=== PATIENT | male | born 1995 | race Caucasian/White ===

== ENCOUNTER 2019-05-11 23:23 | Emergency (ER) | payer MEDICAID, SELFPAY ==
[2019-05-11 23:27] VITALS: BP 133/70; PULSE 97; RESP 22; TEMP 36.8; O2SAT 100
[2019-05-12 01:06] VITALS: BP 140/86; PULSE 77; RESP 18; TEMP 37; O2SAT 99
--- NOTE | 2019-05-12 01:06 | ED.WOUNDLAC ---
HPI - Wound/Laceration General Chief Complaint: Wound/Laceration Stated Complaint: dog bite 4 days ago Time Seen by Provider: 05/12/19 01:03 Source: patient Mode of arrival: ambulatory Limitations: no limitations History of Present Illness HPI narrative: A 23 y/o male presents to the ED with c/o dog bite. Pt states that 5 days ago he was bitten by a Rottweiler on his left thigh. He notes that today the dog bite started to drain pus. Pt adds that walking causes pain to the left thigh. He is currently up to date on his Tetanus. Pt has no other complaints at this time. Onset (ago): day(s) (5) Extremity Location: Left: thigh Patient tetanus UTD: Yes Context: other (Dog bite) Associated symptoms: pain (With movement) Related Data Allergies Allergy/AdvReac Type Severity Reaction Status Date / Time No Known Allergies Allergy Verified 03/21/19 23:36 Review of Systems Review of Systems: Narrative: CONSTITUTIONAL: Denies fever, chills, or sweats. SKIN: Denies rash or itching. MUSCULOSKELETAL: Denies back pain, joint pain, or myalgia. Reports left thigh dog bite with pain. All systems reviewed & are unremarkable except as noted in HPI and below PMFSH Past Medical History Medical History Asthma Surgical History Surgical History (Updated 05/12/19 @ 01:31 by Dionne Gonzáles) No pertinent past surgical history Social History Social History (Updated 05/12/19 @ 01:31 by Dionne Gonzáles) Smoking status: Never smoker Substance use: current Substance use type: marijuana Gender identity (if verbalized by the patient): Male Exam Narrative: Exam Narrative: GENERAL: Well-appearing, well-nourished, and in no acute distress. HEAD: Normocephalic, atraumatic. EYES: PERRLA and EOMI. ENT: Nares clear, no rhinorrhea or epistaxis. Mucous membranes moist. NECK: Supple. CHEST: Clear to auscultation. No respiratory distress. HEART: Regular rate and rhythm. No murmur heard. Normal peripheral pulses. ABDOMEN: Soft, nontender, nondistended, normal active bowel sounds. EXTREMITIES: Normal range of motion. No edema. SKIN: Warm, dry, no rash. Hematoma to left lateral thigh with mild erythema. No warmth or fluctuance. NEURO: No focal deficits. Alert and oriented X3. Course Vital Signs Vital signs: Vital Signs Temperature 36.8 C 05/11/19 23:27 Pulse Rate 97 05/11/19 23:27 Respiratory Rate 22 H 05/11/19 23:27 Blood Pressure 133/70 05/11/19 23:27 Pulse Oximetry 100 05/11/19 23:27 Temperature 37.0 C 05/12/19 01:06 Pulse Rate 77 05/12/19 01:06 Respiratory Rate 18 05/12/19 01:06 Blood Pressure 140/86 05/12/19 01:06 Pulse Oximetry 99 05/12/19 01:06 Procedures Abscess I/D lower extremity: Date of Incision: 05/12/19 Time of Incision: 01:30 Side (if applicable): left Local Anesthetic: lidocaine 1% Amount of anesthesia used (mL): 5 Technique: incised with #11 blade Irrigation: No Packing used?: none I&D Results: Blood MDM - Wound/Laceration MDM Narrative Medical decision making narrative: Patient presents for evaluation of left leg wound from a dog bite that is 4 days old. This was incised, there is no purulent drainage. Only blood present. Appears more of a very local cellulitis with induration, there is really not much erythema or warmth. No evidence of foreign body. We will treat patient with oral Augmentin, patient's tetanus is up-to-date. He is neurovascularly intact with soft compartments. He was discharged home advised to follow-up if the wound was worsening, unable to tolerate antibiotics.Pt left prior to receiving paperwork in the ED. Discharge Plan Discharge Clinical Impression: Dog bite of extremity Cellulitis Qualifiers: Site of cellulitis: extremity Site of cellulitis of extremity: lower extremity Laterality: left Qualified Code(s): L03.116 - Cellulitis of left lower limb P
== END 2019-05-12 02:24 | disposition home or self-care (01) ==
PROVIDERS: Emergency Provider Emergency Medicine
DX: S71.152A Open bite, left thigh, initial encounter (principal); L03.116 Cellulitis of left lower limb; J45.909 Unspecified asthma, uncomplicated; W54.0XXA Bitten by dog, initial encounter
CPT/HCPCS: 10060; 99283

== ENCOUNTER 2020-02-14 12:42 | Emergency (ER) | payer OTHER, SELFPAY ==
--- NOTE | ~2020-02-14 | XR_ITS ---
EXAMINATION: XR abdomen/kub 1V DATE: 02/14/2020 13:52 INDICATION: Abdominal pain. Constipation. TECHNIQUE: A supine view of the abdomen on 2 radiographs was obtained. COMPARISON: None. FINDINGS: Small amount of gas scattered throughout the colon with minimal if any stool. No dilated gas-filled b owel to suggest obstruction. Couple phleboliths in the right hemipelvis. Additional sclerotic lesion projecting over the right sacral ala/posterior iliac spine most likely a bone island. Visualized lung bases are clear. Heart size is normal. Asymmetric joint space narrowing and subarticular sclerosis a t the right sacral iliac joint consistent with differential including secondary osteoarthritis relate d to prior infection or trauma or inflammatory psoriatic or reactive arthritis. Mild lumbar levocurva ture. IMPRESSION: 1. Normal bowel gas pattern. Reviewed, dictated and finalized at location A. R APPRENTICE
[2020-02-14 13:13] VITALS: BP 143/99; PULSE 93; RESP 18; TEMP 37; O2SAT 100
--- NOTE | 2020-02-14 14:04 | ED.GENADULT ---
HPI - General Adult General Chief complaint: Nausea/Vomiting/Diarrhea Stated complaint: constipation Time Seen by Provider: 02/14/20 12:50 Source: patient Mode of arrival: ambulatory Limitations: no limitations History of Present Illness HPI narrative: Patient is a 24-year-old male who presents to emergency department for evaluation of diarrhea that initially was liquid in nature lasted a few days with mild cramping of the abdomen patient thought he may have been constipated prior to the onset and began to take laxatives which she quit taking 2 days ago and is now noting mild discomfort of the abdomen with more normalized stools denies fever chills nausea vomiting URI symptoms Related Data Allergies Allergy/AdvReac Type Severity Reaction Status Date / Time No Known Allergies Allergy Verified 07/12/19 12:50 Review of Systems Review of Systems: All systems reviewed & are unremarkable except as noted in HPI and below PMFSH Past Medical History Medical History Asthma Healthy adult male Surgical History Surgical History No history of previous surgery No pertinent past surgical history Social History Social History Smoking status: Never smoker Substance use: current Substance use type: marijuana Gender identity (if verbalized by the patient): Male Sexual Orientation (if Verbalized by the Patient): Straight or Heterosexual Exam Narrative: Exam Narrative: GENERAL: Well-appearing, well-nourished, and in no acute distress. HEAD: Normocephalic, atraumatic. EYES: PERRLA and EOMI. ENT: Nares clear, no rhinorrhea or epistaxis. Mucous membranes moist. CHEST: Clear to auscultation. No respiratory distress. No wheezes rales or rhonchi HEART: Regular rate and rhythm. No murmur heard. Normal peripheral pulses. ABDOMEN: Soft, nontender, nondistended EXTREMITIES: Normal range of motion. No edema. SKIN: Warm, dry, no rash. NEURO: No focal deficits. Alert and oriented x3. PSYCH: Normal mood and affect. Course Course Emergency Course: Patient in the room at this time aware of case findings treatment plan and diagnosis agreeing to follow-up as directed or to return if symptoms worsen hemodynamically stable afebrile nontoxic-appearing no distress nontender abdominal exam felt appropriate for discharge home Vital Signs Vital signs: Vital Signs Temperature 98.6 F 02/14/20 13:13 Pulse Rate 93 02/14/20 13:13 Respiratory Rate 18 02/14/20 13:13 Blood Pressure 143/99 H 02/14/20 13:13 Pulse Oximetry 100 02/14/20 13:13 Temperature 98.6 F 02/14/20 13:13 Pulse Rate 93 02/14/20 13:13 Respiratory Rate 18 02/14/20 13:13 Blood Pressure 143/99 H 02/14/20 13:13 Pulse Oximetry 100 02/14/20 13:13 Medical Decision Making MDM Narrative Medical decision making narrative: Patient in the room aware of case findings treatment plan diagnosis felt appropriate for outpatient reevaluation by primary care will be discharged home provided with reasons to return Vital Signs Vital Signs: Vital Signs Temperature 98.6 F 02/14/20 13:13 Pulse Rate 93 02/14/20 13:13 Respiratory Rate 18 02/14/20 13:13 Blood Pressure 143/99 H 02/14/20 13:13 Pulse Oximetry 100 02/14/20 13:13 Temperature 98.6 F 02/14/20 13:13 Pulse Rate 93 02/14/20 13:13 Respiratory Rate 18 02/14/20 13:13 Blood Pressure 143/99 H 02/14/20 13:13 Pulse Oximetry 100 02/14/20 13:13 Discharge Plan Discharge Clinical Impression: Diarrhea Patient Disposition: Home, Self-Care Condition: Stable Instructions: Antibiotic Form, Acute Diarrhea (ED) Additional Instructions: Follow up with your primary care doctor tommorrow to set up for reevaluation in the next 7 days. Go to ER for worsening pain, nausea/vomitting, fever/chills, penile discharge,
== END 2020-02-14 15:02 | disposition home or self-care (01) ==
PROVIDERS: Emergency Provider Emergency Medicine
DX: R19.7 Diarrhea, unspecified (principal); J45.909 Unspecified asthma, uncomplicated
CPT/HCPCS: 74018; 99283

== ENCOUNTER 2020-03-25 13:17 | Emergency (ER) | payer OTHER, SELFPAY ==
[2020-03-25 13:27] VITALS: BP 117/51; PULSE 100; RESP 18; TEMP 36.8; O2SAT 99
--- NOTE | 2020-03-25 14:06 | ED.GENADULT ---
HPI - General Adult General Chief complaint: Wound/Laceration Stated complaint: Dog Bite Time Seen by Provider: 03/25/20 13:22 Source: patient Mode of arrival: ambulatory Limitations: no limitations History of Present Illness HPI narrative: Patient presents with chief complaint of swelling and pain to the posterior right calf that began last night after being bit on the calf is. Patient states that the dog is up-to-date on vaccinations. He states he is at his Tdap injection within the last 5 years. He reports more pain and swelling to the area today so he came for evaluation. Patient denies fever, chills, nausea, vomiting, diarrhea or any other symptoms. Patient denies allergies to any antibiotics or medications. Patient denies any chronic medical diseases. Related Data Allergies Allergy/AdvReac Type Severity Reaction Status Date / Time No Known Allergies Allergy Verified 03/25/20 13:31 Review of Systems Review of Systems: Narrative: CONSTITUTIONAL: Denies fever, chills, or sweats. EYES: Denies visual changes, redness, or discharge. ENT: Denies rhinorrhea, congestion, sore throat, or otalgia. CARDIOVASCULAR: Denies chest pain, palpitations, or edema. RESPIRATORY: Denies cough or dyspnea. GASTROINTESTINAL: Denies abdominal pain, nausea, vomiting, or diarrhea. GENITOURINARY: Denies dysuria or hematuria. SKIN: Reports dog bite denies rash or itching. MUSCULOSKELETAL: Denies back pain, joint pain, or myalgia. NEUROLOGIC: Denies headache, numbness, dizziness, or weakness. PSYCHIATRIC: Denies anxiety or depression. PMFSH Past Medical History Medical History Asthma Healthy adult male Surgical History Surgical History No history of previous surgery No pertinent past surgical history Social History Social History Smoking status: Never smoker Substance use: current Substance use type: marijuana Gender identity (if verbalized by the patient): Male Exam Narrative: Exam Narrative: GENERAL: Well-appearing, well-nourished, and in no acute distress. HEAD: Normocephalic, atraumatic. EYES: PERRLA and EOMI. NECK: Range of motion intact. CHEST: Clear to auscultation. No respiratory distress. No wheezes rales or rhonchi HEART: Regular rate and rhythm. No murmur heard. Normal peripheral pulses. EXTREMITIES: Normal range of motion. No edema. SKIN: 3 puncture wounds to posterior aspect of right calf, largest area 1.5cm, not bleeding. No foreign bodies seen. No tendons exposed. No ness tenderness. Warm, dry, no rash. NEURO: No focal deficits. Alert and oriented x3. PSYCH: Normal mood and affect. Course Vital Signs Vital signs: Vital Signs Temperature 98.2 F 03/25/20 13:27 Pulse Rate 100 03/25/20 13:27 Respiratory Rate 18 03/25/20 13:27 Blood Pressure 117/51 L 03/25/20 13:27 Pulse Oximetry 99 03/25/20 13:27 Temperature 98.2 F 03/25/20 13:27 Pulse Rate 100 03/25/20 13:27 Respiratory Rate 18 03/25/20 13:27 Blood Pressure 117/51 L 03/25/20 13:27 Pulse Oximetry 99 03/25/20 13:27 Medical Decision Making MDM Narrative Medical decision making narrative: Patient is up-to-date on tetanus. Patient reports pain is on the area but declined Toradol injection here. Patient agreeable to Augmentin and naproxen p.o. Patient instructed wound care instructions and need to follow-up with primary care if Any signs of infection present. Patient return to emergency department if you have any emergent symptoms. Vital Signs Vital Signs: Vital Signs Temperature 98.2 F 03/25/20 13:27 Pulse Rate 100 03/25/20 13:27 Respiratory Rate 18 03/25/20 13:27 Blood Pressure 117/51 L 03/25/20 13:27 Pulse Oximetry 99 03/25/20 13:27 Temperature 98.2 F 03/25/20 13:27 Pulse Rate 100 03/25/20 13:27 Respiratory Rate 18
== END 2020-03-25 14:43 | disposition home or self-care (01) ==
PROVIDERS: Emergency Provider Emergency Medicine
DX: S81.851A Open bite, right lower leg, initial encounter (principal); W54.0XXA Bitten by dog, initial encounter
CPT/HCPCS: 99283